=== PATIENT | male | born 1985 | race Caucasian/White ===

== ENCOUNTER 2024-03-06 18:52 | Emergency (ER) | payer OTHER ==
[2024-03-06] MEDS: Amoxicillin/Clavulanate K 875-125 MG Tab PO ONE (19:17)
== END 2024-03-06 19:29 ==
LOC: FB.ED 18:52
DX: H66.91 Otitis media, unspecified, right ear (principal); H72.91 Unspecified perforation of tympanic membrane, right ear; F17.210 Nicotine dependence, cigarettes, uncomplicated; Z79.899 Other long term (current) drug therapy
CPT/HCPCS: 99283; A9270

== ENCOUNTER 2024-03-07 15:13 | Emergency (ER) | payer OTHER ==
[2024-03-07] MEDS: Ketorolac 15 MG/ML SDV IVPUSH ONE (15:35)
[2024-03-07 15:37] LABS: BASOPHILS PERCENT AUTO 0.4 % (0.3-3.8); EOSINOPHILS ABSOLUTE AUTO 0.1 x10-3/uL (0.0-0.6); EOSINOPHILS PERCENT AUTO 1.3 % (0.1-6.8); HEMATOCRIT 43.1 % (38.3-50.1); HEMOGLOBIN 14.4 g/dL (12.9-17.7); LYMPHOCYTES ABSOLUTE AUTO 1.8 x10-3/uL (0.5-4.5); LYMPHOCYTES PERCENT AUTO 23.4 % (15.8-45.3); MEAN CORPUSCULAR HEMOGLOBIN 31.2 pg (27.0-33.3); MEAN CORPUSCULAR HGB CONC 33.4 g/dL (28.7-35.3); MEAN CORPUSCULAR VOLUME 93.3 fL (80.8-98.7); MEAN PLATELET VOLUME 7.1 fL (6.7-11.0); MONOCYTES ABSOLUTE AUTO 0.6 x10-3/uL (0.0-1.2); NEUTROPHILS ABSOLUTE AUTO 5.2 x10-3/uL (1.7-6.9); NEUTROPHILS PERCENT AUTO 66.9 % (40.3-71.8); PLATELET COUNT,PLT 390 x10(3)uL (117-477); RED BLOOD CELL COUNT 4.63 x10(6)uL (3.90-5.90); RED CELL DISTRIBUTION WIDTH 12.4 % (12.4-15.0); WHITE BLOOD CELL COUNT,WBC 7.8 x10-3/uL (3.2-10.1)
[2024-03-07 15:49] LABS: BILIRUBIN,URINE NEGATIVE (NEGATIVE); GLUCOSE,URINE NORMAL (NORMAL); KETONES,URINE NEGATIVE (NEGATIVE); LEUKOCYTE ESTERASE,URINE NEGATIVE (NEGATIVE); NITRITE,URINE NEGATIVE (NEGATIVE); OCCULT BLOOD,URINE NEGATIVE (NEGATIVE); PROTEIN,URINE NEGATIVE (NEGATIVE); UROBILINOGEN,URINE NORMAL (NEGATIVE)
[2024-03-07 15:50] LABS: BLOOD UREA NITROGEN,BUN 12 mg/dL (7-18); CALCIUM 8.7 mg/dL (8.6-10.2); CARBON DIOXIDE,CO2 28 mmol/L (21-32); CHLORIDE,CL 104 mmol/L (100-110); ESTIMATED GFR 98 mL/min (>60); GLUCOSE RANDOM 84 mg/dL (80-116); POTASSIUM,K 3.8 mmol/L (3.5-5.3); SODIUM,NA 139 mmol/L (135-145)
[2024-03-07 15:51] LABS: LIPASE 61 U/L (16-77)
[2024-03-07] MEDS: Sodium Chloride 0.9% 1,000 ML IV ONE (15:55)
[2024-03-07 15:56] LABS: ALANINE AMINOTRANSFERASE,ALT 55 U/L (12-36); ALBUMIN 3.5 g/dL (3.5-5.2); ALKALINE PHOSPHATASE 62 IU/L (56-112); ASPARTATE AMNIOTRANSFERASE,AST 30 IU/L (5-25); BILIRUBIN TOTAL 0.3 mg/dL (0.1-1.3); PROTEIN TOTAL,TP 7.1 g/dL (6.0-8.0)
[2024-03-07 15:57] LABS: C-REACTIVE PROTEIN < 0.50 mg/dL (<0.50)
[2024-03-07 16:01] LABS: APPEARANCE,URINE CLEAR (CLEAR); BACTERIA,URINE OCCASIONAL (NS); COLOR,URINE YELLOW (YELLOW); RBC,URINE NOT SEEN (0-5); SQUAMOUS EPITHELIAL CELLS,UR RARE (NS,R,O); WBC,URINE 0-5 (0-5)
[2024-03-07 16:03] LABS: LACTIC ACID 2.2 mmol/L (0.4-2.0)
== END 2024-03-07 17:35 ==
LOC: FB.ED 15:13
DX: M54.16 Radiculopathy, lumbar region (principal); B35.1 Tinea unguium; K21.9 Gastro-esophageal reflux disease without esophagitis; F17.210 Nicotine dependence, cigarettes, uncomplicated
CPT/HCPCS: 74176; 80053; 81001; 83605; 83690; 85025; 86140; 96361; 96374; 99285; J1885; J7030; 99284